=== PATIENT | female | born 2000 | race American Indian/Alaskan Native ===

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

== ENCOUNTER 2021-03-03 12:51 | Emergency (ER) | payer BC, OTHER ==
[2021-03-03] MEDS ORDERED: Meclizine 25 MG Tab PO ONE (16:59)
[2021-03-03] MEDS ORDERED: Ondansetron 4 MG Tab.DIS PO ONE (16:59)
[2021-03-03 17:35] LABS: BLOOD UREA NITROGEN,BUN 9 mg/dL (7.0-18.0); CARBON DIOXIDE,CO2 29.2 mmol/L (21.0-32.0); CHLORIDE,CL 102 mmol/L (98-107); GLUCOSE RANDOM 78 mg/dL (74-106); LIPASE 118 U/L (73-393); POTASSIUM,K 4.1 mmol/L (3.5-5.1); SODIUM,NA 141 mmol/L (136-145)
--- NOTE | 2021-03-03 17:35 | PCM.EKG ---
#1 Interpretation EKG Date: 03/03/21 Time: 17:29 Rhythm: NSR Rate (Beats/Min): 66 [place]: Normal P-Wave: Present QRS: Normal ST-T: Normal QT: Normal RI/PQ Interval: 132 Comparison: NA - No Prior EKG EKG Interpretation Comments: Normal EKG
--- NOTE | 2021-03-03 19:04 | CR ---
INDICATION: Weakness TECHNIQUE: Chest radiograph 1 view COMPARISON: 04/25/2020 FINDINGS: Mediastinum: The mediastinum is normal in appearance. The heart silhouette is normal in size and morphology. Lung: Both lungs are unremarkable in appearance. No sign of pleural effusion seen. No pneumothorax is identified. Bone and Soft tissue: Unremarkable for age. IMPRESSION: 1. No acute cardiopulmonary disease is seen. Dictated by: Ronald Lee MD @ 03/03/2021 19:04:03 (Electronically Signed)
--- NOTE | 2021-03-03 19:08 | EDM.PDOC ---
ED HPI GENERAL MEDICAL PROBLEM - General Chief Complaint: General Stated Complaint: SMELLS & TASTES BLOOD/ DIZZY Time Seen by Provider: 03/03/21 16:37 Source of Information: Reports: Patient History Limitations: Reports: No Limitations - History of Present Illness INITIAL COMMENTS - FREE TEXT/NARRATIVE: HISTORY AND PHYSICAL: History of present illness: Patient is a 20-year-old female who presents emergency room today with concern of feeling dizzy and weak x2 days with associated metallic taste and smell of her mouth and nose today. Patient states that she just has a dizziness sensation and feels weak over the past 2 days and today started taste metallic/blood like in her nose and mouth but denies any bleeding. Patient denies any coughing up blood. Patient states that her most notable symptom is the dizziness/weakness and feels that she has to move around slower due to this. Patient denies any health history or any head injury. Patient denies any other symptoms or concerns. Patient denies fever, chills, chest pain, shortness of breath, or cough. Denies headache, neck stiff ness, change in vision, syncope, or near syncope. Denies nausea, vomiting, abdominal pain, diarrhea, constipation, or dysuria. Has not noted any blood in urine or stool. Patient has been eating and drinking appropriately. Review of systems: As per history of present illness and below otherwise all systems reviewed and negative. Past medical history: As per history of present illness and as reviewed below otherwise noncontributory. Surgical history: As per history of present illness and as reviewed below otherwise noncontributory. Social history: See social history for further information Family history: As per history of present illness and as reviewed below otherwise noncontributory. Physical exam: General: Patient is alert, oriented, and in no acute distress. Patient sitting comfortably on exam table. It will stable and reviewed by me HEENT: Atraumatic, normocephalic, pupils equal and reactive bilaterally, negative for conjunctival pallor or scleral icterus, mucous membranes moist, TMs normal bilaterally, throat clear, neck supple, nontender, trachea midline. No drooling or trismus noted. No meningeal signs. No hot potato voice noted. Lungs: Clear to auscultation, breath sounds equal bilaterally, chest nontender. Heart: S1S2, regular rate and rhythm without overt murmur Abdomen: Soft, nondistended, nontender. Negative for masses or hepatosplenomegaly. Negative for costovertebral tenderness. Pelvis: Stable nontender. Genitourinary: Deferred. Rectal: Deferred. Skin: Intact, warm, dry. No lesions or rashes noted. Extremities: Atraumatic, negative for cords or calf pain. Neurovascular unremarkable. Neuro: Awake, alert, oriented. Cranial nerves II through XII unremarkable. Cerebellum unremarkable. Motor and sensory unremarkable throughout. Exam nonfocal. Notes: Patient is a 20-year-old female who presents emergency room today with concern of dizziness/weakness and metallic /taste in her mouth and nose over the past 2 days. Upon arrival to the ED, patient is vitally stable and well-appearing on exam. Obtain cardiac evaluation and reassess patient. Patient declines a COVID-19 test. All risk versus benefits discussed with patient and expresses understanding. See Dr. Valente's dictation for specific EKG interpretation. However, normal sinus rhythm without STEMI. CBC unremarkable. CMP unremarkable. Troponin negative. hCG negative. Lipase within normal limits. Chest x-ray shows no acute cardiopulmonary process. Upon reevaluation of patient, she remains vitally stable and comfortable throughout stay in ED. Strict return precautions thoroughly discussed with patient. Discussed importance for follow-up with primary care provider. Voices understanding and is agreeable to plan of care. Denies any further questions or concerns at this time. Diagnostics: EKG, CBC, CMP, chest x-ray, troponin, serum hCG (patient declines COVID-19 test) Therapeutics: Meclizine, Zofran Prescription: None Impression: Dizziness Plan: 1. Encourage small but frequent sips of fluid to prevent dehydration. 2. Follow-up with a primary care provider as discussed. Return to the ED as needed and as discussed. 3. You can alternate ibuprofen and Tylenol as directed for pain and discomfort. Definitive disposition and diagnosis as appropriate pending reevaluation and review of above. 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 Musculoskeletal History: Reports: None Neurological History: Reports: None Psychiatric History: Reports: None Endocrine/Metabolic History: Reports: None Hematologic History: Reports: None Immunologic History: Reports: None Oncologic (Cancer) History: Reports: None Dermatologic History: Reports: None - Infectious Disease History Infectious Disease History: Reports: Chicken Pox - Past Surgical History Head Surgeries/Procedures: Reports: None HEENT Surgical History: Reports: Myringotomy w Tube(s), Tonsillectomy Respiratory Surgical History: Reports: None GI Surgical History: Reports: None Neurological Surgical History: Reports: None Musculoskeletal Surgical History: Reports: Other (See Below) Other Musculoskeletal Surgeries/Procedures:: right wrist surgery and left clavicle Oncologic Surgical History: Reports: None Dermatological Surgical History: Reports: None Social & Family History - Family History Family Medical History: No Pertinent Family History - Caffeine Use Caffeine Use: Reports: Soda - Recreational Drug Use Recreational Drug Use: No ED ROS GENERAL - Review of Systems Review Of Systems: Comprehensive ROS is negative, except as noted in HPI. ED EXAM, GENERAL - Physical Exam Exam: See Below (See dictation) Course - Vital Signs Last Recorded V/S: Last Vital Signs Temp 96.9 F 03/03/21 19:10 Pulse 64 03/03/21 19:10 Resp 18 03/03/21 19:10 BP 115/67 03/03/21 19:10 Pulse Ox 98 03/03/21 19:10 - Orders/Labs/Meds Labs: Laboratory Tests 03/03/21 03/03/21 03/03/21 Range/Units 17:05 17:05 17:05 WBC 7.82 (4.0-11.0) K/uL RBC 4.86 (4.30-5.90) M/uL Hgb 15.0 (12.0-16.0) g/dL Hct 43.8 (36.0-46.0) % MCV 90.1 (80.0-98.0) fL MCH 30.9 (27.0-32.0) pg MCHC 34.2 (31.0-37.0) g/dL RDW Std Deviation 39.3 (28.0-62.0) fl RDW Coeff of Latia 12 (11.0-15.0) % Plt Count 276 (150-400) K/uL MPV 9.70 (7.40-12.00) fL Neut % (Auto) 54.3 (48.0-80.0) % Lymph % (Auto) 37.6 (16.0-40.0) % Daggett % (Auto) 5.9 (0.0-15.0) % Eos % (Auto) 1.9 (0.0-7.0) % Baso % (Auto) 0.3 (0.0-1.5) % Neut # (Auto) 4.3 (1.4-5.7) K/uL Lymph # (Auto) 2.9 H (0.6-2.4) K/uL Daggett # (Auto) 0.5 (0.0-0.8) K/uL Eos # (Auto) 0.2 (0.0-0.7) K/uL Baso # (Auto) 0.0 (0.0-0.1) K/uL Nucleated RBC % 0.0 /100WBC Nucleated RBCs # 0 K/uL Sodium 141 (136-145) mmol/L Potassium 4.1 (3.5-5.1) mmol/L Chloride 102 (98-107) mmol/L Carbon Dioxide 29.2 (21.0-32.0) mmol/L BUN 9 (7.0-18.0) mg/dL Creatinine 0.9 (0.6-1.0) mg/dL Est Cr Clr Drug Dosing 79.52 mL/min Estimated GFR (MDRD) > 60.0 ml/min Glucose 78 (74-106) mg/dL Calcium 9.3 (8.5-10.1) mg/dL Total Bilirubin 0.6 (0.2-1.0) mg/dL AST 20 (15-37) IU/L ALT 29 (14-63) IU/L Alkaline Phosphatase 73 (46-116) U/L Troponin I < 0.050 (0.000-0.056) ng/mL Total Protein 7.7 (6.4-8.2) g/dL Albumin 4.4 (3.4-5.0) g/dL Globulin 3.3 (2.6-4.0) g/dL Albumin/Globulin Ratio 1.3 (0.9-1.6) Lipase 118 (73-393) U/L HCG, Qual NEGATIVE (NEG) Meds: Medications Discontinued Medications Generic Name Dose Route Start Last Admin Trade Name Angelq PRN Reason Stop Dose Admin Meclizine HCl 25 mg 03/03/21 16:59 03/03/21 17:26 Meclizine 25 Mg Tab PO 03/03/21 17:00 25 mg ONETIME ONE Administration Ondansetron HCl 4 mg 03/03/21 16:59 03/03/21 17:25 Ondansetron 4 Mg Tab.Dis PO 03/03/21 17:00 4 mg ONETIME ONE Administration Departure - Departure Time of Disposition: 19:07 Disposition: Home, Self-Care 01 Clinical Impression: Dizziness - Discharge Information Instructions: Dizziness, [id number] Referrals: Maxine Weems [employer] MANAGER [Primary Care Provider] - Forms: ED Department Discharge Additional Instructions: The following information is given to patients seen in the emergency department who are being discharged to home. This information is to outline your options for follow-up care. We provide all patients seen in our emergency department with a follow-up referral. The need for follow-up, as well as the timing and circumstances, are variable depending upon the specifics of your emergency department visit. If you don't have a primary care physician on staff, we will provide you with a referral. We always advise you to contact your personal physician following an emergency department visit to inform them of the circumstance of the visit and for follow-up with them and/or the need for any referrals to a consulting specialist. The emergency department will also refer you to a specialist when appropriate. This referral assures that you have the opportunity for follow-up care with a specialist. All of these measure are taken in an effort to provide you with optimal care, which includes your follow-up. Under all circumstances we always encourage you to contact your private physician who remains a resource for coordinating your care. When calling for follow-up care, please make the office aware that this follow-up is from your recent emergency room visit. If for any reason you are refused follow-up, please contact the [facility] Emergency Department at and asked to speak to the emergency department charge nurse. JOSE [facility] [address] [place] [address] [facility] [address] [place] [id number] 1. Encourage small but frequent sips of fluid to prevent dehydration. 2. Follow-up with a primary care provider as discussed. Return to the ED as needed and as discussed. 3. You can alternate ibuprofen and Tylenol as directed for pain and discomfort. Sepsis Event Note (ED) - Evaluation Sepsis Screening Result: No Definite Risk
[2021-03-03 21:16] VITALS: BP 115/67; PULSE 64
== END 2021-03-03 19:10 | disposition home or self-care (01) ==
LOC: MW.ED 12:51
DX: R42 Dizziness and giddiness (principal); Z91.012 Allergy to eggs; Z91.011 Allergy to milk products; Z91.013 Allergy to seafood
CPT/HCPCS: 36415; 71045; 80053; 83690; 84484; 84703; 85025; 93005; 99285; A9270

== ENCOUNTER 2022-04-03 06:08 | Emergency (ER) | payer BC ==
[2022-04-03] MEDS ORDERED: Amoxicillin/Clavulanate K 875-125 MG Tab PO ONE (06:35)
[2022-04-03] MEDS ORDERED: Ibuprofen 600 MG Tab PO ONE (06:35)
== END 2022-04-03 06:15 | disposition home or self-care (01) ==
LOC: MW.ED 06:08
DX: H10.33 Unspecified acute conjunctivitis, bilateral (principal); H66.91 Otitis media, unspecified, right ear
CPT/HCPCS: 99282; A9270

== ENCOUNTER 2022-04-21 08:34 | Emergency (ER) | payer BC ==
[2022-04-21] MEDS ORDERED: Sodium Chloride 0.9% 1,000 ML IV ONE ×2 (08:57→11:38)
[2022-04-21] MEDS ORDERED: Ondansetron 4 MG/2 ML SDV IVPUSH ONE (08:57)
[2022-04-21 09:19] LABS: CARBON DIOXIDE,CO2 24.4 mmol/L (21.0-32.0); POTASSIUM,K 3.9 mmol/L (3.5-5.1)
[2022-04-21] MEDS ORDERED: Vitamin B6-pyridOXINE 50 MG Tab PO STA (11:40)
[2022-04-21 13:45] VITALS: BP 101/51; PULSE 85
== END 2022-04-21 13:47 | disposition home or self-care (01) ==
LOC: MW.ED 08:34
DX: O21.9 Vomiting of pregnancy, unspecified (principal); O99.891 Other specified diseases and conditions complicating pregnancy; R19.7 Diarrhea, unspecified; Z91.011 Allergy to milk products; Z91.012 Allergy to eggs; Z91.013 Allergy to seafood; Z3A.08 8 weeks gestation of pregnancy
CPT/HCPCS: 36415; 76801; 80053; 81001; 83690; 84702; 85025; 96361; 96374; 99284; A9270; J2405; J7030

== ENCOUNTER 2022-04-22 04:53 | Emergency (ER) | payer BC ==
[2022-04-22] MEDS ORDERED: Ondansetron 4 MG/2 ML SDV IVPUSH ONE (05:00)
[2022-04-22] MEDS ORDERED: Sodium Chloride 0.9% 1,000 ML IV ONE (05:00)
[2022-04-22 06:42] VITALS: BP 103/55; PULSE 88
== END 2022-04-22 05:56 | disposition home or self-care (01) ==
LOC: MW.ED 04:53
DX: O21.0 Mild hyperemesis gravidarum (principal); Z3A.01 Less than 8 weeks gestation of pregnancy; Z91.011 Allergy to milk products; Z91.012 Allergy to eggs; Z91.013 Allergy to seafood
CPT/HCPCS: 96361; 96374; 99283; J2405; J7030; 99284

== ENCOUNTER 2022-04-23 10:03 | Observation (INO) | payer BC ==
[2022-04-23] MEDS ORDERED: Sodium Chloride 0.9% 1,000 ML IV ONE ×2 (11:22→11:23)
[2022-04-23] MEDS ORDERED: Metoclopramide 10 MG/2 ML SDV IVPUSH ONE (11:22)
[2022-04-23 12:07] LABS: CARBON DIOXIDE,CO2 15.7 mmol/L (21.0-32.0); POTASSIUM,K 4.3 mmol/L (3.5-5.1)
[2022-04-23] MEDS ORDERED: Ondansetron 4 MG/2 ML SDV IVPUSH ONE (12:42)
[2022-04-23] MEDS ORDERED: 50% Dextrose in Water 50 ML Syringe IVPUSH ONE (14:13)
[2022-04-23] MEDS ORDERED: Ondansetron 4 MG/2 ML SDV IVPUSH PRN (14:21)
[2022-04-23] MEDS ORDERED: Acetaminophen 325 MG Tab PO PRN (14:34)
[2022-04-23] MEDS ORDERED: Sodium Chloride 0.9% 10 ML Syringe FLUSH PRN (14:34)
[2022-04-23] MEDS ORDERED: Sodium Chloride 0.9% 2.5 ML Syringe FLUSH PRN (14:34)
[2022-04-23] MEDS: Dextrose 5%-Lactated Ringers 1,000 ML IV SCH ×2 (14:35→21:07)
[2022-04-23] MEDS: Pantoprazole 20 MG in Sodium Chloride 0.9% 10 ML IVPUSH SCH (15:32)
[2022-04-23 15:41] LABS: CORONAVIRUS COVID-19 NAA NEGATIVE (NEGATIVE); INFLUENZA A NAA NEGATIVE (NEGATIVE); INFLUENZA B NAA NEGATIVE (NEGATIVE)
[2022-04-24] MEDS: Dextrose 5%-Lactated Ringers 1,000 ML IV SCH (05:11)
[2022-04-24 06:42] LABS: CARBON DIOXIDE,CO2 24.6 mmol/L (21.0-32.0); POTASSIUM,K 3.9 mmol/L (3.5-5.1)
[2022-04-24] MEDS: Pantoprazole 20 MG in Sodium Chloride 0.9% 10 ML IVPUSH SCH (15:25)
[2022-04-24 15:33] VITALS: BP 102/58; PULSE 78
== END 2022-04-24 15:45 | disposition home or self-care (01) ==
LOC: MW.ED 10:03 → MW.MS 14:04
PROVIDERS: ADMIT Student in an Organized Health Care Education/Training Program; ATTEND Student in an Organized Health Care Education/Training Program
DX: O99.611 Diseases of the digestive system complicating pregnancy, first trimester (principal); K52.9 Noninfective gastroenteritis and colitis, unspecified; O21.0 Mild hyperemesis gravidarum; O99.281 Endocrine, nutritional and metabolic diseases complicating pregnancy, first trimester; G90.A Postural orthostatic tachycardia syndrome [POTS]; E16.2 Hypoglycemia, unspecified; E86.0 Dehydration; Z3A.01 Less than 8 weeks gestation of pregnancy; Z91.011 Allergy to milk products; Z91.012 Allergy to eggs; Z91.013 Allergy to seafood; Z98.890 Other specified postprocedural states; Z20.822 Contact with and (suspected) exposure to COVID-19
CPT/HCPCS: 0240U; 36415; 80048; 80053; 81003; 82947; 83690; 85025; 87045; 87046; 87324; 87328; 87329; 87449; 87899; C9113; J2405; J2765; J3490; J7030; J7121; 99217; 99219; 99284

== ENCOUNTER 2022-05-10 21:10 | Emergency (ER) | payer BC ==
[2022-05-10] MEDS ORDERED: Sodium Chloride 0.9% 1,000 ML IV ONE (21:36)
[2022-05-10] MEDS ORDERED: Promethazine 25 MG/ML SDV IM ONE (21:37)
[2022-05-10 22:10] LABS: CARBON DIOXIDE,CO2 23.3 mmol/L (21.0-32.0); POTASSIUM,K 3.6 mmol/L (3.5-5.1)
[2022-05-10] MEDS ORDERED: Dextrose 5%-Lactated Ringers 1,000 ML IV SCH (22:15)
[2022-05-10 23:49] VITALS: BP 103/62; PULSE 95
== END 2022-05-11 | disposition home or self-care (01) ==
LOC: MW.ED 21:10
DX: O21.0 Mild hyperemesis gravidarum (principal); Z91.011 Allergy to milk products; Z91.013 Allergy to seafood; Z91.012 Allergy to eggs; Z3A.09 9 weeks gestation of pregnancy
CPT/HCPCS: 36415; 80053; 81001; 82009; 83690; 83735; 84702; 84703; 85025; 96360; 96361; 96372; 99284; J2550; J7030; J7121

== ENCOUNTER 2022-06-16 12:35 | Emergency (ER) | payer BC | END 2022-06-16 13:34 | disposition left against medical advice (07) | LOC: MW.ED 12:35 | DX: Z53.21 Procedure and treatment not carried out due to patient leaving prior to being seen by health care provider (principal) ==

== ENCOUNTER 2022-06-19 10:24 | Emergency (ER) | payer OTHER, BC ==
[2022-06-19 11:56] VITALS: BP 102/61; PULSE 93
== END 2022-06-19 11:54 | disposition home or self-care (01) ==
LOC: MW.ED 10:24
DX: S81.012A Laceration without foreign body, left knee, initial encounter (principal); Z91.011 Allergy to milk products; Z91.012 Allergy to eggs; Z91.013 Allergy to seafood; V49.9XXA Car occupant (driver) (passenger) injured in unspecified traffic accident, initial encounter
CPT/HCPCS: 73562-26-LT; 73562-LT; 99283

== ENCOUNTER 2023-06-28 06:04 | Emergency (ER) | payer BC ==
[2023-06-28 06:25] LABS: BASOPHILS ABSOLUTE AUTO 0.04 K/uL (0.00-0.20); BASOPHILS PERCENT AUTO 0.2 % (0.0-1.0); EOSINOPHILS ABSOLUTE AUTO 0.12 K/uL (0.00-0.45); EOSINOPHILS PERCENT AUTO 0.7 % (0.0-6.0); HEMATOCRIT 48.6 % (37.0-47.0); HEMOGLOBIN 16.8 g/dL (12.0-16.0); IMMATURE GRAN ABSOLUTE AUTO 0.04 K/uL (0.00-0.05); IMMATURE GRAN PERCENT AUTO 0.2 % (0.0-0.4); LYMPHOCYTES ABSOLUTE AUTO 0.78 K/uL (1.00-4.80); LYMPHOCYTES PERCENT AUTO 4.9 % (24.0-44.0); MEAN CORPUSCULAR HEMOGLOBIN 30.1 pg (28.0-32.0); MEAN CORPUSCULAR HGB CONC 34.6 g/dL (32.0-36.0); MEAN CORPUSCULAR VOLUME 87.1 fL (83.0-99.0); MEAN PLATELET VOLUME 9.2 fL (9.4-12.3); MONOCYTES ABSOLUTE AUTO 1.06 K/uL (0.00-0.80); MONOCYTES PERCENT AUTO 6.6 % (0.0-8.0); NEUTROPHILS ABSOLUTE AUTO 14.03 K/uL (1.80-7.70); NEUTROPHILS PERCENT AUTO 87.4 % (41.0-71.0); PLATELET COUNT,PLT 295 K/uL (150-400); RED BLOOD CELL COUNT 5.58 M/uL (4.10-5.30); WHITE BLOOD CELL COUNT,WBC 16.07 K/uL (3.9-11.3)
[2023-06-28] MEDS ORDERED: Sodium Chloride 0.9% 1,000 ML IV ONE ×2 (06:27→06:33)
[2023-06-28] MEDS ORDERED: Ondansetron 4 MG/2 ML SDV IVPUSH ONE (06:27)
[2023-06-28] MEDS ORDERED: Sodium Chloride 0.9% 10 ML Syringe FLUSH PRN (06:27)
[2023-06-28] MEDS ORDERED: Sodium Chloride 0.9% 2.5 ML Syringe FLUSH PRN (06:27)
[2023-06-28 06:43] LABS: A/G RATIO 1.1 (0.9-1.6); ALBUMIN 4.2 g/dL (3.4-5.0); BILIRUBIN TOTAL 0.5 mg/dL (0.2-1.0); CALCIUM 9.3 mg/dL (8.5-10.1); CARBON DIOXIDE,CO2 25.9 mmol/L (21.0-32.0); CREATININE 0.9 mg/dL (0.6-1.0); EST CRCL DRUG DOSING (CG) 77.55 mL/min; POTASSIUM,K 3.7 mmol/L (3.5-5.1)
[2023-06-28 07:19] LABS: CORONAVIRUS COVID-19 NAA NEGATIVE (NEGATIVE); INFLUENZA A NAA NEGATIVE (NEGATIVE); INFLUENZA B NAA NEGATIVE (NEGATIVE)
[2023-06-28] MEDS ORDERED: Ondansetron 4 MG Tab PO ONE (08:10)
[2023-06-28] MEDS ORDERED: Promethazine 25 MG/ML SDV IM ONE (09:49)
[2023-06-28 11:16] VITALS: BP 116/65
[2023-06-28 11:17] VITALS: PULSE 103
== END 2023-06-28 11:26 | disposition home or self-care (01) ==
LOC: MW.ED 06:04
DX: K52.9 Noninfective gastroenteritis and colitis, unspecified (principal); Z86.16 Personal history of COVID-19; Z91.011 Allergy to milk products; Z91.012 Allergy to eggs; Z91.013 Allergy to seafood
CPT/HCPCS: 0240U; 36415; 80053; 83690; 84703; 85025; 96361; 96372; 96374; 99284; A9270; J2405; J2550; J3490; J7030